=== PATIENT | male | born 1960 | race Caucasian/White ===

== ENCOUNTER 2016-07-05 20:25 | Emergency (ER) | payer OTHER ==
[~2016-07-05] VITALS: Ht 182.9 cm; Wt 121.9 kg
[~2016-07-05 20:25] MED LIST: ADVIL200 MG PO; LIPITOR40 MG PO; LITE COAT ASPI325 M1 PO; METOPROLOL TART25 MG PO; NICOTINE PATCH1 EAC2 TD; NITROMIST8.5 GM MM; NOHOMEMEDS; RANITIDINE HCL150 MG PO
[2016-07-05 21:10] LABS: MCH 29.5 PG (29.0-34.0); MCHC 33.5 G/DL (30.0-36.0); MCV 87.9 FL (86-99); MEAN PLAT.VOLUME 10.3 uM^3 (9.0-12.4); PLATELET COUNT 184 K/uL (156-360); RBC DIS.WIDTH-CV 17.3 % (11.8-14.6); RBC DIS.WIDTH-SD 55.6 % (39-53); RED BLOOD COUNT 5.46 M/uL (4.00-5.50); WHITE BLOOD COUNT 8.1 K/uL (4.1-10.2)
[2016-07-05 21:21] LABS: CHLORIDE 108 mEq/L (99-109); POTASSIUM 4.1 mEq/L (3.7-5.4)
[2016-07-05 21:22] LABS: SODIUM 139 mEq/L (136-147)
[2016-07-05 21:23] LABS: GLUCOSE 84 mg/dL (70-99); PROTHROMBIN TIME 11.7 (9.2-11.2); PTT 30.6 (25-32)
[2016-07-05 21:25] LABS: ANION GAP 10 MEQ/L (2-14)
[2016-07-05] MEDS ORDERED: OMEPRAZOLE40 M1 PO (21:25)
[2016-07-05 21:27] LABS: GFR ESTIMATE (CALCULATED) > 59 mL/min/
[2016-07-05 21:28] LABS: UREA NITROGEN (BUN) 20 mg/dL (9-23)
[2016-07-05 21:35] LABS: INTER. NORMALIZED RATIO 1.1
[2016-07-05 21:47] VITALS: BP 125/88
== END 2016-07-05 21:48 | disposition home or self-care (01) ==
LOC: EME 20:25
DX: K29.70 Gastritis, unspecified, without bleeding (principal); R19.5 Other fecal abnormalities; I10 Essential (primary) hypertension; K21.9 Gastro-esophageal reflux disease without esophagitis; I25.10 Atherosclerotic heart disease of native coronary artery without angina pectoris; Z98.61 Coronary angioplasty status; Z86.73 Personal history of transient ischemic attack (TIA), and cerebral infarction without residual deficits; Z79.82 Long term (current) use of aspirin; Z87.891 Personal history of nicotine dependence
CPT/HCPCS: 80048; 85027; 85610; 85730; 86850; 86900; 86901; 99281; 99283

== ENCOUNTER 2018-01-08 14:11 | Emergency (ER) | payer BC ==
[~2018-01-08] VITALS: Ht 182.9 cm; Wt 125.3 kg
[~2018-01-08 14:11] MED LIST changes: +OMEPRAZOLE40 M1 PO
[2018-01-08] MEDS ORDERED: AUGMENTIN875 MG PO (15:52)
[2018-01-08 16:38] VITALS: BP 149/98
== END 2018-01-08 16:38 | disposition home or self-care (01) ==
LOC: EME 14:11 → RME 14:11
PROC: 3E0234Z Introduction of Serum, Toxoid and Vaccine into Muscle, Percutaneous Approach (ICD-10-PCS; principal; 2018-01-08)
DX: S61.551A Open bite of right wrist, initial encounter (principal); W55.51XA Bitten by raccoon, initial encounter; Z23 Encounter for immunization; Z29.14 Encounter for prophylactic rabies immune globulin; I10 Essential (primary) hypertension; I25.10 Atherosclerotic heart disease of native coronary artery without angina pectoris; Z95.5 Presence of coronary angioplasty implant and graft; Z86.73 Personal history of transient ischemic attack (TIA), and cerebral infarction without residual deficits; Z79.82 Long term (current) use of aspirin; F17.200 Nicotine dependence, unspecified, uncomplicated
CPT/HCPCS: 99281; 99284

== ENCOUNTER 2018-01-11 13:55 | Emergency (ER) | payer BC ==
[~2018-01-11] VITALS: Ht 182.9 cm; Wt 125.7 kg
[~2018-01-11 13:55] MED LIST changes: +AUGMENTIN875 MG PO
[2018-01-11 14:53] VITALS: BP 142/98
== END 2018-01-11 14:56 | disposition home or self-care (01) ==
LOC: EME 13:55
PROC: 3E0234Z Introduction of Serum, Toxoid and Vaccine into Muscle, Percutaneous Approach (ICD-10-PCS; principal; 2018-01-11)
DX: S61.551D Open bite of right wrist, subsequent encounter (principal); Z23 Encounter for immunization; W55.51XD Bitten by raccoon, subsequent encounter; Z79.82 Long term (current) use of aspirin; F17.200 Nicotine dependence, unspecified, uncomplicated
CPT/HCPCS: 99281; 99283